=== PATIENT | female | born 1960 | race African-American/Black ===

== ENCOUNTER 2020-12-12 06:01 | Inpatient (IN) ==
[2020-12-12] MEDS ORDERED: *HR* FentaNYL (PF) 100 MCG/2 ML VIAL IVP ONE ×2 (06:12→07:45)
[2020-12-12] MEDS ORDERED: Aspirin 325 MG TABLET PO ONE (06:12)
[2020-12-12 06:34] LABS: Basophils % 0.3 %; Eosinophils # 0.2 K/mcL (0.0-0.6); Eosinophils % 1.7 %; Hematocrit 36.1 % (35.3-44.9); Hemoglobin 12.6 g/dL (11.5-15.4); Immature Granulocytes % 0.5 % (0-4); Lymphocytes # 3.2 K/mcL (0.6-4.6); Lymphocytes % 31.1 %; Mean Corpuscular HGB Conc 34.9 g/dL (31.6-35.5); Mean Corpuscular Hemoglobin 29.1 pg (28.0-33.3); Mean Corpuscular Volume 83.4 fL (83.0-100.0); Mean Platelet Volume 8.4 fL (9.4-12.4); Monocytes # 0.9 K/mcL (0.0-1.3); Monocytes % 8.6 %; Platelet Count 405 K/mcL (140-400); Red Blood Count 4.33 M/mcL (3.82-4.97); Red Cell Distribution Width 15.1 % (11.5-14.5); Segmented Neutrophils % 57.8 %; White Blood Count 10.4 K/mcL (4.3-11.1)
[2020-12-12] MEDS ORDERED: Morphine Sulfate 2 MG/ML SYRINGE IVP ONE ×2 (06:37→19:28)
[2020-12-12] MEDS ORDERED: Isovue-370 500 ML BOTTLE IVP ONE (06:48)
[2020-12-12 06:56] LABS: BUN/Creatinine Ratio 12 (6-26); Blood Urea Nitrogen 11 mg/dL (8-23); Calcium 9.4 mg/dL (8.6-10.3); Carbon Dioxide 26 mEq/L (23-29); Chloride 102 mEq/L (98-107); Glucose 126 mg/dL (70-105); Osmolality,Calculated 285 (280-300); Potassium 3.9 mEq/L (3.5-5.1); Sodium 137 mEq/L (136-145); Troponin I < 0.03 ng/mL (< 0.04); eGFR For African Americans > 60 (> 60); eGFR For Non-African Americans > 60 (> 60)
[2020-12-12] MEDS ORDERED: *HR* Heparin 5,000 UNIT/ML VIAL IVP ONE (07:45)
[2020-12-12] MEDS ORDERED: *HR* Heparin 5,000 UNIT/ML VIAL IVP PRN ×2 (07:45)
[2020-12-12] MEDS ORDERED: Mag Hydrox/Al Hydrox/Simeth 30 ML UDC PO PRN (07:50)
[2020-12-12] MEDS ORDERED: Acetaminophen 325 MG TABLET PO PRN (07:50)
[2020-12-12] MEDS ORDERED: Ondansetron ODT 4 MG TAB.RAPDIS SL PRN (07:50)
[2020-12-12] MEDS ORDERED: Melatonin 3 MG TABLET PO PRN (07:50)
[2020-12-12] MEDS ORDERED: Naloxone 0.4 MG/ML INJ IVP PRN (07:50)
[2020-12-12] MEDS ORDERED: Perflutren Lipid Microsphere 1.3 ML in 0.9 % Sodium Chloride 8.7 ML IVP PRN (07:53)
[2020-12-12] MEDS: Heparin 25,000UNIT/250ML 1/2NS 25,000 UNIT/250 ML IV.SOLN IVC SCH ×2 (08:18→23:18)
[2020-12-12 08:37] LABS: INR 1.2; Prothrombin Time 13.7 Seconds (9.4-12.1)
[2020-12-12 08:39] LABS: Heparin anti-factor XA UFH < 0.04 IU/mL (0.30-0.70)
[2020-12-12] MEDS: *HR* OxyCODONE Immed Rel 5 MG TABLET PO PRN ×2 (10:31→17:00)
[2020-12-12] MEDS ORDERED: *HR* HYDROmorphone (PF) 1 MG/ML SYRINGE IVP ONE (15:33)
[2020-12-12] MEDS: Gabapentin 300 MG CAPSULE PO SCH (21:54)
[2020-12-12] MEDS ORDERED: Nitroglycerin 0.4 MG TAB.SUBL SL PRN (23:02)
[2020-12-13] MEDS: *HR* OxyCODONE Immed Rel 5 MG TABLET PO PRN ×4 (03:15→21:06)
[2020-12-13 04:20] LABS: Hematocrit 35.5 % (35.3-44.9); Hemoglobin 11.9 g/dL (11.5-15.4); Mean Corpuscular HGB Conc 33.5 g/dL (31.6-35.5); Mean Corpuscular Hemoglobin 29.2 pg (28.0-33.3); Mean Platelet Volume 8.6 fL (9.4-12.4); Platelet Count 375 K/mcL (140-400); Red Blood Count 4.08 M/mcL (3.82-4.97); White Blood Count 10.7 K/mcL (4.3-11.1)
[2020-12-13 04:34] LABS: INR 1.2; Prothrombin Time 13.8 Seconds (9.4-12.1)
[2020-12-13 04:39] LABS: BUN/Creatinine Ratio 11 (6-26); Blood Urea Nitrogen 11 mg/dL (8-23); Carbon Dioxide 27 mEq/L (23-29); Chloride 98 mEq/L (98-107); Glucose 119 mg/dL (70-105); Osmolality,Calculated 277 (280-300); Potassium 4.1 mEq/L (3.5-5.1); Sodium 133 mEq/L (136-145); eGFR For African Americans > 60 (> 60); eGFR For Non-African Americans 57 (> 60)
[2020-12-13] MEDS: Gabapentin 300 MG CAPSULE PO SCH ×2 (11:12→20:26)
[2020-12-13] MEDS: Heparin 25,000UNIT/250ML 1/2NS 25,000 UNIT/250 ML IV.SOLN IVC SCH (16:06)
[2020-12-14] MEDS: *HR* OxyCODONE Immed Rel 5 MG TABLET PO PRN ×2 (01:46→17:37)
[2020-12-14 05:46] LABS: Hematocrit 33.5 % (35.3-44.9); Hemoglobin 11.2 g/dL (11.5-15.4); Mean Corpuscular HGB Conc 33.4 g/dL (31.6-35.5); Mean Corpuscular Volume 86.8 fL (83.0-100.0); Platelet Count 374 K/mcL (140-400); Red Blood Count 3.86 M/mcL (3.82-4.97); Red Cell Distribution Width 14.7 % (11.5-14.5); White Blood Count 9.3 K/mcL (4.3-11.1)
[2020-12-14 06:05] LABS: BUN/Creatinine Ratio 11 (6-26); Blood Urea Nitrogen 10 mg/dL (8-23); Calcium 9.1 mg/dL (8.6-10.3); Carbon Dioxide 29 mEq/L (23-29); Chloride 97 mEq/L (98-107); Glucose 99 mg/dL (70-105); Osmolality,Calculated 277 (280-300); Sodium 134 mEq/L (136-145); eGFR For African Americans > 60 (> 60); eGFR For Non-African Americans > 60 (> 60)
[2020-12-14] MEDS: cefTRIAXone 1,000 MG in Water for inj. (sterile) 10 ML IVP SCH (09:30)
[2020-12-14] MEDS: Gabapentin 300 MG CAPSULE PO SCH ×2 (09:31→20:43)
[2020-12-14] MEDS: Azithromycin 500 MG in D5% in Water 250 ML IVPB SCH (09:31)
[2020-12-14] MEDS: *HR* Rivaroxaban 15 MG TABLET PO SCH ×2 (09:31→20:43)
[2020-12-14] MEDS: Heparin 25,000UNIT/250ML 1/2NS 25,000 UNIT/250 ML IV.SOLN IVC SCH (09:45)
[2020-12-14] MEDS: Ipratropium/Albuterol Neb 3 ML IH SCH ×3 (09:54→22:18)
[2020-12-15] MEDS: *HR* OxyCODONE Immed Rel 5 MG TABLET PO PRN ×2 (02:34→06:36)
[2020-12-15] MEDS: Ipratropium/Albuterol Neb 3 ML IH SCH ×4 (03:49→22:22)
[2020-12-15 08:40] LABS: Basophils % 0.4 %; Eosinophils # 0.2 K/mcL (0.0-0.6); Eosinophils % 2.2 %; Hematocrit 29.3 % (35.3-44.9); Hemoglobin 9.9 g/dL (11.5-15.4); Immature Granulocytes % 0.4 % (0-4); Lymphocytes # 1.9 K/mcL (0.6-4.6); Lymphocytes % 26.7 %; Mean Corpuscular HGB Conc 33.8 g/dL (31.6-35.5); Mean Corpuscular Hemoglobin 28.8 pg (28.0-33.3); Mean Corpuscular Volume 85.2 fL (83.0-100.0); Monocytes # 0.7 K/mcL (0.0-1.3); Neutrophils # 4.3 K/mcL (1.6-8.9); Platelet Count 349 K/mcL (140-400); Red Blood Count 3.44 M/mcL (3.82-4.97); Red Cell Distribution Width 14.6 % (11.5-14.5); Segmented Neutrophils % 60.3 %; White Blood Count 7.2 K/mcL (4.3-11.1)
[2020-12-15] MEDS: Gabapentin 300 MG CAPSULE PO SCH ×2 (08:58→19:41)
[2020-12-15] MEDS: *HR* Rivaroxaban 15 MG TABLET PO SCH ×2 (08:58→19:41)
[2020-12-15] MEDS: Azithromycin 500 MG in D5% in Water 250 ML IVPB SCH (08:58)
[2020-12-15] MEDS: cefTRIAXone 1,000 MG in Water for inj. (sterile) 10 ML IVP SCH (08:59)
[2020-12-15 10:32] LABS: BUN/Creatinine Ratio 11 (6-26); Blood Urea Nitrogen 10 mg/dL (8-23); Carbon Dioxide 29 mEq/L (23-29); Chloride 102 mEq/L (98-107); Glucose 171 mg/dL (70-105); Osmolality,Calculated 273 (280-300); Potassium 3.9 mEq/L (3.5-5.1); Sodium 130 mEq/L (136-145); eGFR For African Americans > 60 (> 60); eGFR For Non-African Americans > 60 (> 60)
[2020-12-16] MEDS: Ipratropium/Albuterol Neb 3 ML IH SCH ×2 (03:48→10:54)
[2020-12-16 07:11] VITALS: BP 124/78
[2020-12-16 07:20] LABS: Basophils % 0.3 %; Eosinophils # 0.2 K/mcL (0.0-0.6); Eosinophils % 2.6 %; Hematocrit 30.6 % (35.3-44.9); Hemoglobin 10.4 g/dL (11.5-15.4); Immature Granulocytes % 0.5 % (0-4); Lymphocytes # 2.1 K/mcL (0.6-4.6); Mean Corpuscular Hemoglobin 28.7 pg (28.0-33.3); Mean Corpuscular Volume 84.5 fL (83.0-100.0); Mean Platelet Volume 8.7 fL (9.4-12.4); Monocytes # 0.6 K/mcL (0.0-1.3); Neutrophils # 3.5 K/mcL (1.6-8.9); Platelet Count 377 K/mcL (140-400); Red Blood Count 3.62 M/mcL (3.82-4.97); Red Cell Distribution Width 14.6 % (11.5-14.5); Segmented Neutrophils % 54.6 %; White Blood Count 6.5 K/mcL (4.3-11.1)
[2020-12-16 07:53] LABS: BUN/Creatinine Ratio 10 (6-26); Blood Urea Nitrogen 8 mg/dL (8-23); Calcium 9.5 mg/dL (8.6-10.3); Carbon Dioxide 30 mEq/L (23-29); Chloride 102 mEq/L (98-107); Glucose 105 mg/dL (70-105); Osmolality,Calculated 287 (280-300); Potassium 4.1 mEq/L (3.5-5.1); Sodium 139 mEq/L (136-145); eGFR For African Americans > 60 (> 60); eGFR For Non-African Americans > 60 (> 60)
[2020-12-16] MEDS: cefTRIAXone 1,000 MG in Water for inj. (sterile) 10 ML IVP SCH (08:32)
[2020-12-16] MEDS: Azithromycin 500 MG in D5% in Water 250 ML IVPB SCH (08:32)
[2020-12-16] MEDS: *HR* Rivaroxaban 15 MG TABLET PO SCH (08:33)
[2020-12-16] MEDS: Gabapentin 300 MG CAPSULE PO SCH (08:33)
== END 2020-12-16 12:17 | disposition home or self-care (01) | DRG 175 ==
LOC: SUATTDRO → 3ANU 06:01 → EMEROOARM 06:01 → 3ANU 09:39
PROVIDERS: ADMIT Family Medicine; ATTEND Family Medicine

== ENCOUNTER 2021-06-23 16:07 | Observation (INO) ==
[2021-06-23] MEDS ORDERED: *HR* HYDROcodone/Acet 5/325 mg TABLET PO ONE (16:41)
[2021-06-23] MEDS ORDERED: *HR* Propofol 200 MG/20 ML VIAL IVP ONE (17:16)
[2021-06-23] MEDS ORDERED: 0.9 % Sodium Chloride 1,000 ML ONE (17:28)
[2021-06-23] MEDS ORDERED: 0.9 % Sodium Chloride 1,000 ML IV ONE (17:31)
[2021-06-23] MEDS ORDERED: *HR* Midazolam HCl 2 MG/2 ML VIAL IVP ONE (17:34)
[2021-06-23] MEDS ORDERED: Ondansetron ODT 4 MG TAB.RAPDIS SL PRN (18:17)
[2021-06-23] MEDS ORDERED: Naloxone 0.4 MG/ML INJ IVP PRN (18:17)
[2021-06-23] MEDS ORDERED: Ketorolac 15 MG/ML VIAL IVP PRN (18:17)
[2021-06-23] MEDS ORDERED: Morphine Sulfate 2 MG/ML SYRINGE IVP ONE (18:21)
[2021-06-23] MEDS ORDERED: Ondansetron 4 MG/2 ML VIAL IVP ONE (18:22)
[2021-06-23] MEDS ORDERED: Loratadine/Pseudophed (12 HR) 1 EACH TABLET PO PRN (18:41)
[2021-06-23] MEDS ORDERED: Nitrofurantoin (BID) 100 MG CAPSULE PO SCH (21:00)
[2021-06-23] MEDS: Gabapentin 300 MG CAPSULE PO SCH (23:04)
[2021-06-23] MEDS: Ipratropium/Albuterol Neb 3 ML IH SCH (23:04)
[2021-06-23] MEDS: Acetaminophen 325 MG TABLET PO SCH (23:08)
[2021-06-24 04:20] LABS: Basophils % 0.3 %; Eosinophils # 0.2 K/mcL (0.0-0.6); Eosinophils % 2.6 %; Hematocrit 33.6 % (35.3-44.9); Hemoglobin 11.7 g/dL (11.5-15.4); Immature Granulocytes % 0.1 % (0-4); Lymphocytes # 2.2 K/mcL (0.6-4.6); Lymphocytes % 32.4 %; Mean Corpuscular HGB Conc 34.8 g/dL (31.6-35.5); Mean Corpuscular Hemoglobin 29.2 pg (28.0-33.3); Mean Corpuscular Volume 83.8 fL (83.0-100.0); Monocytes # 0.6 K/mcL (0.0-1.3); Monocytes % 8.9 %; Neutrophils # 3.8 K/mcL (1.6-8.9); Platelet Count 309 K/mcL (140-400); Red Blood Count 4.01 M/mcL (3.82-4.97); Red Cell Distribution Width 14.6 % (11.5-14.5); Segmented Neutrophils % 55.7 %; White Blood Count 6.9 K/mcL (4.3-11.1)
[2021-06-24 04:22] LABS: VBG Ionized Calcium 1.16 mmol/L (1.15-1.35)
[2021-06-24 04:54] LABS: BUN/Creatinine Ratio 17 (6-26); Blood Urea Nitrogen 15 mg/dL (8-23); Calcium 8.7 mg/dL (8.6-10.3); Carbon Dioxide 27 mEq/L (23-29); Chloride 104 mEq/L (98-107); Glucose 104 mg/dL (70-105); Osmolality,Calculated 289 (280-300); Potassium 4.1 mEq/L (3.5-5.1); Sodium 139 mEq/L (136-145); eGFR For African Americans > 60 (> 60); eGFR For Non-African Americans > 60 (> 60)
[2021-06-24] MEDS: Acetaminophen 325 MG TABLET PO SCH (05:19)
[2021-06-24] MEDS: Ipratropium/Albuterol Neb 3 ML IH SCH (05:19)
[2021-06-24 08:23] VITALS: BP 96/61; PULSE 60; TEMP 97.6; O2SAT 95
[2021-06-24] MEDS: Gabapentin 300 MG CAPSULE PO SCH (09:42)
== END 2021-06-24 15:10 | disposition home or self-care (01) ==
LOC: 4WAOSI 16:07 → EMEROOARM 16:07 → SUATTDRO 19:06 → 4WAOSI 19:54
PROVIDERS: ADMIT Internal Medicine; ATTEND Internal Medicine

== ENCOUNTER 2022-05-30 04:28 | Inpatient (IN) ==
[2022-05-30] MEDS ORDERED: methylPREDNISolone 125 MG/2 ML VIAL IVP ONE (04:43)
[2022-05-30] MEDS ORDERED: Ipratropium/Albuterol Neb 3 ML IH ONE ×2 (04:43→06:25)
[2022-05-30] MEDS ORDERED: Ipratropium/Albuterol Neb 3 ML ONE (05:10)
[2022-05-30 05:19] LABS: Basophils % 0.2 %; Eosinophils # 0.4 K/mcL (0.0-0.6); Eosinophils % 5.2 %; Hematocrit 39.4 % (35.3-44.9); Hemoglobin 13.9 g/dL (11.5-15.4); Immature Granulocytes % 0.2 % (0-4); Lymphocytes # 3.1 K/mcL (0.6-4.6); Lymphocytes % 38.5 %; Mean Corpuscular HGB Conc 35.3 g/dL (31.6-35.5); Mean Corpuscular Hemoglobin 29.8 pg (28.0-33.3); Mean Corpuscular Volume 84.4 fL (83.0-100.0); Mean Platelet Volume 9.1 fL (9.4-12.4); Monocytes # 0.6 K/mcL (0.0-1.3); Monocytes % 6.9 %; Platelet Count 339 K/mcL (140-400); Red Blood Count 4.67 M/mcL (3.82-4.97); Red Cell Distribution Width 14.3 % (11.5-14.5); White Blood Count 8.1 K/mcL (4.3-11.1)
[2022-05-30 05:26] LABS: Calcium 9.7 mg/dL (8.6-10.3); Potassium 3.7 mEq/L (3.5-5.1)
[2022-05-30 05:40] LABS: Influenza A PCR Negative (Negative); Influenza B PCR Negative (Negative); Resp. Syncytial Virus PCR Negative (Negative)
[2022-05-30 05:43] LABS: SARS-CoV-2 by PCR (In House) Negative (Negative)
[2022-05-30] MEDS ORDERED: Albuterol 2.5 MG/3 ML NEBULIZER IH ONE (07:31)
[2022-05-30] MEDS ORDERED: MOM Conc 10 ML UD.LIQ PO PRN (09:03)
[2022-05-30] MEDS ORDERED: Ondansetron 4 MG/2 ML VIAL IVP PRN (09:03)
[2022-05-30] MEDS ORDERED: Mag Hydrox/Al Hydrox/Simeth 30 ML UDC PO PRN (09:03)
[2022-05-30] MEDS ORDERED: Naloxone 0.4 MG/ML INJ IVP PRN (09:03)
[2022-05-30] MEDS ORDERED: Albuterol 2.5 MG/3 ML NEBULIZER IH PRN (09:20)
[2022-05-30] MEDS: MethylPREDNISolone 40 MG/ML VIAL IVP SCH ×2 (10:03→16:22)
[2022-05-30] MEDS: Ipratropium/Albuterol Neb 3 ML IH SCH ×3 (15:23→20:04)
[2022-05-30] MEDS: Acetaminophen 325 MG TABLET PO PRN (18:32)
[2022-05-30] MEDS: Gabapentin 300 MG CAPSULE PO SCH (20:14)
[2022-05-30] MEDS: Magnesium Oxide 400 MG TABLET PO SCH (20:14)
[2022-05-31] MEDS: MethylPREDNISolone 40 MG/ML VIAL IVP SCH ×3 (00:02→15:21)
[2022-05-31] MEDS: ALPRAZolam 0.5 MG TABLET PO PRN ×2 (00:05→21:17)
[2022-05-31] MEDS: Ipratropium/Albuterol Neb 3 ML IH SCH ×6 (00:07→19:54)
[2022-05-31 01:56] LABS: Hematocrit 36.4 % (35.3-44.9); Hemoglobin 12.6 g/dL (11.5-15.4); Mean Corpuscular HGB Conc 34.6 g/dL (31.6-35.5); Mean Corpuscular Hemoglobin 29.4 pg (28.0-33.3); Mean Corpuscular Volume 84.8 fL (83.0-100.0); Mean Platelet Volume 9.2 fL (9.4-12.4); Platelet Count 332 K/mcL (140-400); Red Blood Count 4.29 M/mcL (3.82-4.97); Red Cell Distribution Width 14.3 % (11.5-14.5); White Blood Count 10.9 K/mcL (4.3-11.1)
[2022-05-31 02:04] LABS: Calcium 9.5 mg/dL (8.6-10.3); Magnesium 2.2 mg/dL (1.6-2.6); Potassium 4.3 mEq/L (3.5-5.1)
[2022-05-31] MEDS: *HR* Enoxaparin 40 MG/0.4 ML SYRINGE SQ SCH (05:57)
[2022-05-31] MEDS: Loratadine 10 MG TABLET PO SCH (09:15)
[2022-05-31] MEDS: Gabapentin 300 MG CAPSULE PO SCH ×2 (09:15→21:13)
[2022-05-31] MEDS: Acetaminophen 325 MG TABLET PO PRN (09:17)
[2022-05-31] MEDS: Fluticasone Propionate Nasal 50 MCG/SPRAY BOTTLE NS SCH ×2 (13:45→15:21)
[2022-05-31] MEDS: Magnesium Oxide 400 MG TABLET PO SCH (21:13)
[2022-06-01] MEDS: Ipratropium/Albuterol Neb 3 ML IH SCH ×6 (00:01→20:40)
[2022-06-01] MEDS: MethylPREDNISolone 40 MG/ML VIAL IVP SCH ×4 (00:54→23:49)
[2022-06-01 03:41] LABS: Basophils % 0.1 %; Eosinophils % 0.1 %; Hematocrit 36.3 % (35.3-44.9); Hemoglobin 12.6 g/dL (11.5-15.4); Immature Granulocytes % 0.7 % (0-4); Lymphocytes % 6.7 %; Mean Corpuscular HGB Conc 34.7 g/dL (31.6-35.5); Mean Corpuscular Hemoglobin 29.4 pg (28.0-33.3); Mean Corpuscular Volume 84.8 fL (83.0-100.0); Mean Platelet Volume 9.5 fL (9.4-12.4); Monocytes # 0.5 K/mcL (0.0-1.3); Monocytes % 3.4 %; Neutrophils # 13.7 K/mcL (1.6-8.9); Platelet Count 356 K/mcL (140-400); Red Blood Count 4.28 M/mcL (3.82-4.97); Red Cell Distribution Width 14.4 % (11.5-14.5); White Blood Count 15.4 K/mcL (4.3-11.1)
[2022-06-01 04:05] LABS: Calcium 9.6 mg/dL (8.6-10.3); Potassium 4.8 mEq/L (3.5-5.1)
[2022-06-01] MEDS: *HR* Enoxaparin 40 MG/0.4 ML SYRINGE SQ SCH (08:34)
[2022-06-01] MEDS: Fluticasone Propionate Nasal 50 MCG/SPRAY BOTTLE NS SCH (08:34)
[2022-06-01] MEDS: Loratadine 10 MG TABLET PO SCH (08:35)
[2022-06-01] MEDS: Gabapentin 300 MG CAPSULE PO SCH ×2 (08:35→20:47)
[2022-06-01] MEDS ORDERED: *HR* OxyCODONE Immed Rel 5 MG TABLET PO ONE (15:54)
[2022-06-01] MEDS: Budesonide/Formoterol 160/4.5 1 PUFF INH IH SCH (20:40)
[2022-06-01] MEDS: Magnesium Oxide 400 MG TABLET PO SCH (20:47)
[2022-06-02] MEDS: Ipratropium/Albuterol Neb 3 ML IH SCH ×4 (00:08→11:09)
[2022-06-02 05:50] LABS: Basophils % 0.2 %; Hematocrit 36.1 % (35.3-44.9); Hemoglobin 12.5 g/dL (11.5-15.4); Immature Granulocytes % 2.8 % (0-4); Lymphocytes % 7.5 %; Mean Corpuscular HGB Conc 34.6 g/dL (31.6-35.5); Mean Corpuscular Hemoglobin 29.3 pg (28.0-33.3); Mean Corpuscular Volume 84.7 fL (83.0-100.0); Mean Platelet Volume 9.1 fL (9.4-12.4); Monocytes # 0.4 K/mcL (0.0-1.3); Monocytes % 2.8 %; Neutrophils # 11.6 K/mcL (1.6-8.9); Platelet Count 317 K/mcL (140-400); Red Blood Count 4.26 M/mcL (3.82-4.97); Red Cell Distribution Width 14.6 % (11.5-14.5); Segmented Neutrophils % 86.7 %; White Blood Count 13.4 K/mcL (4.3-11.1)
[2022-06-02 06:09] LABS: Calcium 9.4 mg/dL (8.6-10.3); Potassium 4.6 mEq/L (3.5-5.1)
[2022-06-02] MEDS: Budesonide/Formoterol 160/4.5 1 PUFF INH IH SCH (07:19)
[2022-06-02] MEDS: Loratadine 10 MG TABLET PO SCH (07:53)
[2022-06-02] MEDS: *HR* Enoxaparin 40 MG/0.4 ML SYRINGE SQ SCH (07:53)
[2022-06-02] MEDS: MethylPREDNISolone 40 MG/ML VIAL IVP SCH (07:53)
[2022-06-02] MEDS: Gabapentin 300 MG CAPSULE PO SCH (07:53)
[2022-06-02] MEDS: Fluticasone Propionate Nasal 50 MCG/SPRAY BOTTLE NS SCH (07:54)
[2022-06-02] MEDS: Acetaminophen 325 MG TABLET PO PRN (08:00)
[2022-06-02 12:12] VITALS: BP 173/98; PULSE 92; TEMP 98.8; O2SAT 91
== END 2022-06-02 14:25 | disposition home or self-care (01) | DRG 202 ==
LOC: EMEROOARM 04:28 → 3BNU 04:28 → SUATTDRO 08:54 → 3BNU 09:38
PROVIDERS: ADMIT Internal Medicine; ATTEND Family Medicine